=== PATIENT | female | born 1945 | race Caucasian/White ===

== ENCOUNTER → 2024-04-03 12:00 | Outpatient (CLI) | payer MEDICARE, SELFPAY ==
--- NOTE | 2024-04-03 | DI.MRI.S_ITS ---
PROCEDURE: MR LUMBAR SPINE WO CON INDICATIONS: Radiculopathy, lumbar region TECHNIQUE: Noncontrast sagittal T1 spin echo and T2 fast echo, sagittal STIR, and T2 fast spin echo through the lumbar spine. In cases with scoliosis, additional coronal T2 fast spin echo may be performed. COMPARISON: [facility], MR, MR LUMBAR SPINE WITHOUT CONTRAST, 09/10/2018, 11:26. [facility], MR, L-SPINE WITHOUT CONTRAST, 03/14/2016, 10:42. FINDINGS: Image quality: Excellent Mild dextroscoliosis lumbar spine, centered at L3-4. Mild retrolisthesis L2 on L3. Grade 1 anterolisthesis of L4 on L5 and L5 on S1. Moderate superior endplate fracture of L1 with diffuse marrow edema of L1 vertebral body, acute. Marked fibrovascular end plate change at L5-S1. No suspicious marrow replacing lesion. Conus terminates at the level of T12-L1. Minimal prominence of the central canal at the conus. Right neural foraminal stenosis: Mild at L4-5. Moderate at L5-S1. Left neural foraminal stenosis: Mild at L4-5. Moderate at L5-S1. Axial images: T11-T12: No stenosis. T12-L1: Mild retropulsion posterior L1 vertebral body. Mild central canal stenosis. Mild bilateral facet arthropathy. L1-2: Mild bilateral facet arthropathy. No central canal stenosis. L2-3: Posterior disc uncovering. Moderate bilateral facet arthropathy. Mild central canal stenosis. L3-4: Disc bulge. Mild bilateral facet arthropathy. Mild central canal stenosis. L4-5: Disc bulge. Moderate right, severe left facet arthropathy. Mild to moderate central canal stenosis. L5-S1: Disc bulge. Moderate bilateral facet arthropathy. No central canal stenosis. Visualized sacrum is intact. No abdominal aortic aneurysm. Small left renal cyst. 1.1 cm T2 hypointense lesion in the mid zone of the left kidney, incompletely characterized. IMPRESSION: 1. Moderate superior endplate fracture of L1, acute. 2. Multilevel degenerative changes lumbar spine, most pronounced at L5-S1, where there is moderate bilateral neural foraminal stenosis, progressed from prior exam. 3. [id number] central canal stenosis at L4-5. 4. 1.1 cm T2 hypointense lesion in the left kidney, incompletely characterized. Recommend further evaluation with renal ultrasound. Dictated by: Salud Meza M.D. on 04/03/2024 at 14:18 Approved by: Salud Meza M.D. on 04/03/2024 at 14:31
== END ==
PROVIDERS: PCP Physician Assistant Medical; Referring Provider Orthopaedic Surgery; Visit Provider Orthopaedic Surgery
DX: M51.16 Intervertebral disc disorders with radiculopathy, lumbar region (principal); M51.17 Intervertebral disc disorders with radiculopathy, lumbosacral region; M47.26 Other spondylosis with radiculopathy, lumbar region; M47.27 Other spondylosis with radiculopathy, lumbosacral region; M48.061 Spinal stenosis, lumbar region without neurogenic claudication; M48.07 Spinal stenosis, lumbosacral region; M48.56XA Collapsed vertebra, not elsewhere classified, lumbar region, initial encounter for fracture; N28.9 Disorder of kidney and ureter, unspecified
CPT/HCPCS: 72148

== ENCOUNTER → 2025-01-28 11:54 | Outpatient (CLI) | payer MEDICARE, SELFPAY ==
--- NOTE | 2025-01-28 11:56 | DI.RAD.S_ITS ---
PROCEDURE: XR LUMBAR SPINE MIN 4V INDICATIONS: BACK PAIN TECHNIQUE: 5 views of the lumbar spine were acquired, including bilateral oblique views. COMPARISON: Lumbar spine 03/18/2024, MRI lumbar spine 04/03/2024. FINDINGS: Bones: 5 nonrib-bearing vertebrae are present. There is grade 1 anterolisthesis of L4 on L5. Redemonstration of chronic L1 superior endplate fracture deformity with progressive vertebral body height loss now approximately 40-50%. No acute vertebral body compression fractures. No suspicious bony lesions. Multilevel degenerative changes, moderate at L5-S1. Inferior lumbar facet arthropathy. Soft tissues: Overlying bowel gas pattern is normal. No suspicious soft tissue calcifications. Gastric band is in place. Oblique images: No pars defects. IMPRESSION: 1. No acute osseous abnormality. 2. Chronic L1 superior endplate fracture deformity with progressive height loss 3. Grade 1 anterolisthesis of L4 on L5. 4. Multilevel discogenic degenerative disease, worse and moderate at L5-S1. Approved by: Nancy Prince M.D.,Ph.D. on 01/28/2025 at 14:18
--- NOTE | 2025-01-28 11:56 | DI.RAD.S_ITS ---
PROCEDURE: XR HIP W PEL IF DONE RT 2V INDICATIONS: right hip pain TECHNIQUE: 2 views of the hip were acquired. COMPARISON: None. FINDINGS: Bones: No fractures or dislocations. No suspicious bony lesions. The visualized pelvic ring appears intact. Nonuniform joint space narrowing and osteophytic lipping of the acetabuli. Subchondral cystic change of the right hip. Soft tissues: No suspicious soft tissue calcifications or masses. IMPRESSION: Moderate to severe right hip osteoarthritis. Kellgren-Jonh Grade 3. Dictated by: Jd Head M.D. on 01/28/2025 at 14:58 Approved by: Jd Head M.D. on 01/28/2025 at 14:59
== END ==
PROVIDERS: PCP Physician Assistant Medical; Referring Provider Physical Medicine & Rehabilitation; Visit Provider Physical Medicine & Rehabilitation
DX: M51.379 Other intervertebral disc degeneration, lumbosacral region without mention of lumbar back pain or lower extremity pain (principal); M47.816 Spondylosis without myelopathy or radiculopathy, lumbar region; M43.16 Spondylolisthesis, lumbar region; M48.56XA Collapsed vertebra, not elsewhere classified, lumbar region, initial encounter for fracture; M16.11 Unilateral primary osteoarthritis, right hip; M25.551 Pain in right hip; M54.9 Dorsalgia, unspecified
CPT/HCPCS: 72110; 73502

== ENCOUNTER 2025-04-21 07:23 | Outpatient (CLI) | payer MEDICARE, SELFPAY ==
[2025-04-21 07:50] VITALS: BP 155/67; PULSE 67; RESP 16; TEMP 36.5; O2SAT 94
[2025-04-21 08:28] VITALS: BP 162/72; PULSE 67; RESP 18; O2SAT 92
[2025-04-21] MEDS: LIDOCAINE 1% (PF) 5 ML INJ (08:42)
[2025-04-21 08:45] VITALS: BP 128/60; PULSE 64; RESP 16; O2SAT 96
--- NOTE | 2025-04-21 10:41 | PM.PROC.IR.1 ---
Date/Time/Diagnoses Date of procedure: 04/21/25 Time of procedure: 08:00 Pre-procedure diagnosis: Lumbosacral radiculopathy Post-procedure diagnosis: same Procedure Notes Procedure: Interlaminar epidural steroid injection L5-S1 Indications: Lumbosacral radiculopathy Physician: Pawel Boudreaux Total sedation minutes: 0 Complications: none Procedure in detail & Post-procedure care: Patient is here for the planned procedure today as noted. No significant change since the last office visit. For additional clinical scenario please see those office notes. Focused exam: Vital signs reviewed as charted on intake. Gen: Well developed. No acute distress. CV: RRR, no M/R/G Chest: Non-labored breathing, CTAB. Psych: Alert and well-oriented. Mood/Affect: normal. Patient suitable for the planned procedure today: Yes === The following procedure was performed in the office today: Lumbar Epidural Steroid Injection with fluoroscopic guidance - Interlaminar approach (60172) Levels Treated: [L5-S1] Approach: interlaminar Soft tissue: [1% lidocaine 2 mL] Test dose: [1% lidocaine 1 mL] Injectate: 0.75 mL of Depo-Medrol (80mg/mL) in 1.25 mL 1% lidocaine and 1 mL normal saline Fluoroscopy Agent: Isovue 300-M 1.5 mL Notes: Right paramedian. 4.5 in 20 gauge Touhy needle utilized and adequate. Preprocedure pain 7/10, postprocedure pain 3/10. Procedure: After discussing the risks, benefits, and alternatives to the procedure, the patient expressed understanding and wished to proceed. The risks include but are not limited to infection, allergic reaction, nerve damage, stroke, paralysis, epidural hematoma, syncope, headache, respiratory or cardiac arrest, spinal cord injury, and scar formation. Informed consent was obtained and all patient questions were answered. The patient was brought to the procedure suite and placed in the prone position. A pre-procedural pause was conducted to verify: correct patient identity, procedure to be performed and as applicable, correct side and site, correct patient position, and any special requirements. Using a paramedian approach from the side noted above, the region overlying the target was localized under fluoroscopic visualization and the soft tissues overlying this structure were infiltrated with the anesthetic listed above. With fluoroscopic guidance, a #20 gauge Tuohy needle (unless otherwise noted) was inserted into the epidural space using a paramedian approach. The epidural space was localized utilizing intermittent multiplanar fluoroscopic guidance and loss of resistance technique. After negative aspiration, the contrast noted above was injected into the epidural space and the flow of contrast was observed, confirming epidural spread without evidence of intravascular or intrathecal spread. Multi-planar radiographs were obtained for documentation purposes. A test dose of lidocaine was injected into the above noted epidural space, and the patient was observed for 30-60 seconds. No sensory deficits were reported and normal lower extremity motor function was noted. Subsequently, the injectate as noted above was administered into the level noted above. The patient tolerated the procedure well and was discharged after an appropriate period of observation. If there are any complications, the patient was instructed to call us. The patient is to follow-up with the requesting provider in 2-3 weeks. This note was compiled using voice recognition software and therefore may contain typos. Please contact the author with any questions or concerns.
== END 2025-04-21 08:50 | disposition home or self-care (01) ==
LOC: RAD 07:24
PROVIDERS: PCP Physician Assistant Medical; Referring Provider Physical Medicine & Rehabilitation; Visit Provider Physical Medicine & Rehabilitation
DX: M54.17 Radiculopathy, lumbosacral region (principal)
CPT/HCPCS: 62323; J1010